=== PATIENT | male | born 1955 | race African-American/Black ===

== ENCOUNTER 2019-08-08 12:35 | Emergency (ER) | payer OTHER ==
--- NOTE | 2019-08-08 14:04 | RAD ---
EXAM: 3 views of the right foot HISTORY: Nonhealing wound of the toes of the right foot COMPARISON: None FINDINGS: 3 views of the right foot shows no evidence of acute fracture or dislocation. Osteopenia is seen in the phalanges of the toes without obvious osseous erosions are identified. No soft tissue swelling is seen. No degenerative changes are present. IMPRESSION: No evidence of acute osseous abnormality.
--- NOTE | 2019-08-08 14:34 | RAD ---
Addendum: There is a wound along the medial aspect of the great toe. There is sclerotic change in the distal ph alanx which may represent chronic reactive bone formation without obvious osseous erosion. Reported By: Gerald Campbell by Gerald Campbell. EXAM: 3 views of the right foot HISTORY: Nonhealing wound of the toes of the right foot COMPARISON: None FINDINGS: 3 views of the right foot shows no evidence of acute fracture or dislocation. Osteopenia is seen in the phalanges of the toes without obvious osseous erosions are identified. No soft tissue swelling is seen. No degenerative changes are present. IMPRESSION: No evidence of acute osseous abnormality. Transcribed Date/Time: 08/08/2019 2:33 PM
== END 2019-08-08 14:56 | disposition home or self-care (01) ==
LOC: ERS 12:35
DX: L97.519 Non-pressure chronic ulcer of other part of right foot with unspecified severity (principal); E11.9 Type 2 diabetes mellitus without complications; I10 Essential (primary) hypertension; Z89.412 Acquired absence of left great toe

== ENCOUNTER 2021-11-10 13:18 | Emergency (ER) | payer OTHER ==
[~2021-11-10 13:18] MED LIST: Iopamidol-370 76% 500 ML 1 ML ONE
[2021-11-10 14:05] LABS: #Basophils 0.1 thou/uL (0.0-0.2); #Eosinphils 0.2 thou/uL (0.0-0.7); #Lymphocytes 1.7 thou/uL (1.20-3.40); #Monocytes 0.8 thou/uL (0.11-0.59); #Neutrophils 6.3 thou/uL (1.40-6.50); %Basophils 0.6 % (0.0-1.0); %Eosinophils 1.8 % (0.0-10.0); %Lymphocytes 18.7 % (21.0-51.0); %Monocytes 8.8 % (0.0-10.0); %Neutrophils 70.1 % (42.0-75.0); Hemoglobin 13.7 g/dL (14.0-18.0); Mean Corpuscular HGB CONC 31.7 g/dL (32.0-36.0); Mean Corpuscular Hemoglobin 29.7 pg (27.0-31.0); Mean Corpuscular Volume 93.7 fL (78.0-98.0); Mean Platelet Volume 7.5 fL (7.4-10.4); Platelet Count 278 thou/uL (130-400); RBC Distribution Width 12.2 % (11.5-14.5); Red Blood Cell (RBC) Count 4.63 mill/uL (4.70-6.10)
[2021-11-10 14:14] LABS: PTT 34.7 sec (22.9-36.1); Prothrombin Time 13.1 sec (12.0-14.7)
[2021-11-10 14:19] LABS: Acetaminophen Less than 10.0 mcg/mL (10.0-30.0); Alcohol Less than 10 mg/dL (Less than 10); Salicylate Less than 8.0 mg/dL (15.0-30.0)
[2021-11-10 14:26] LABS: ALT (SGPT) 7 U/L (8-55); AST (SGOT) 15 U/L (5-34); Albumin 3.3 g/dL (3.4-4.8); Alkaline Phosphatase 75 U/L (40-110); Anion Gap 12 mmol/L (10-20); BUN (Urea Nitrogen) 21 mg/dL (8.4-25.7); Bilirubin, Total 0.4 mg/dL (0.2-1.2); CK (CPK) 157 U/L (30-200); Calc. Creatinine Clearance 0 mL/min (70-130); Calcium 9.1 mg/dL (7.8-10.44); Carbon Dioxide 19 mmol/L (23-31); Chloride 110 mmol/L (98-107); Globulin 4.1 g/dL (2.4-3.5); Glucose 75 mg/dL (80-115); Potassium 4.1 mmol/L (3.5-5.1); Protein, Total 7.4 g/dL (5.8-8.1); Sodium 137 mmol/L (136-145)
[2021-11-10 14:57] LABS: CKMB 9.6 ng/mL (0-6.6)
[2021-11-10 16:24] LABS: SARS-CoV-2 NAA Rapid Test Not Detected (NotDetected)
[2021-11-10 17:05] LABS: Bacteria/HPF None Seen HPF (None Seen); Bilirubin Negative (Negative); Blood, Urine 1+ (Negative); Clarity Clear (Clear); Glucose, Urine (Dipstick) 70 mg/dL (Negative); Ketone, Urine Negative (Negative); Leukocyte Negative Leu/uL (Negative); Nitrite Negative (Negative); Protein, Urine (Dipstick) 200 mg/dL (Neg-Trace); RBC/HPF 0-3 HPF (0-3); Specific Gravity, Urine 1.014 (1.002-1.036); Squamous Epithelial None Seen HPF (0-3); Urobilinogen Normal mg/dL (Less than 2); WBC/HPF 0-3 HPF (0-3); pH, Urine 7.5 (5.0-9.0)
[2021-11-10 17:13] LABS: Amphetamine Not Detected (NotDetected); Barbiturates Screen Not Detected (NotDetected); Benzodiazepine Screen Not Detected (NotDetected); Cocaine Metabolite Screen Not Detected (NotDetected); Methadone Not Detected (NotDetected); Methamphetamine Not Detected (NotDetected); Opiate Screen Not Detected (NotDetected); Oxycodone Screen Not Detected (NotDetected); Phencyclidine (PCP) Not Detected (NotDetected); THC/Cannabinoid Screen Not Detected (NotDetected); Tricyclic Screen Not Detected (NotDetected)
[2021-11-10] MEDS ORDERED: Aspirin Chewable 81 MG TAB ONE (17:34)
== END 2021-11-10 21:15 | disposition short-term general hospital (02) ==
LOC: ERS 13:18
DX: I63.533 Cerebral infarction due to unspecified occlusion or stenosis of bilateral posterior cerebral arteries (principal); E11.9 Type 2 diabetes mellitus without complications; I10 Essential (primary) hypertension; Z20.822 Contact with and (suspected) exposure to COVID-19; Z79.4 Long term (current) use of insulin; Z79.84 Long term (current) use of oral hypoglycemic drugs; Z79.899 Other long term (current) drug therapy
CPT/HCPCS: 36415; 70450; 70496; 70498; 71045; 72170; 80053; 80306; 80307; 81003; 81015; 82140; 82550; 82553; 84484; 85025; 85610; 85730; 93005; 94760; 96360; Q9967; U0002

== ENCOUNTER 2023-12-26 01:22 | Inpatient (IN) | payer OTHER ==
[2023-12-26] MEDS ORDERED: Ondansetron ODT 4 MG TAB PO PRN (03:13)
[2023-12-26] MEDS ORDERED: Acetaminophen 650 MG Suppository PR PRN (03:13)
[2023-12-26 04:23] LABS: #Basophils 0.04 10x3/uL (0.0-0.2); #Eosinphils Less than 0.03 10x3/uL (0.0-0.7); %Basophils 0.2 % (0.0-1.0); %Lymphocytes 2.6 % (21.0-51.0); %Monocytes 5.4 % (0.0-10.0); %Neutrophils 90.2 % (42.0-75.0); Hematocrit 35.9 % (42.0-52.0); Hemoglobin 12.1 g/dL (14.0-18.0); Mean Corpuscular HGB CONC 33.7 g/dL (32.0-36.0); Mean Corpuscular Hemoglobin 30.6 pg (27.0-31.0); Mean Corpuscular Volume 90.7 fL (78.0-98.0); Mean Platelet Volume 10.7 fL (7.4-10.4); Platelet Count 162 10x3/uL (130-400); RBC Distribution Width 11.9 % (11.5-14.5); Red Blood Cell (RBC) Count 3.96 mill/uL (4.70-6.10)
[2023-12-26] MEDS: Acetaminophen 325 MG TAB PO PRN (04:39)
[2023-12-26 04:52] LABS: ALT (SGPT) 6 U/L (8-55); AST (SGOT) 17 U/L (5-34); Albumin 2.6 g/dL (3.4-4.8); Alkaline Phosphatase 52 U/L (40-110); Anion Gap 13 mmol/L (10-20); BUN (Urea Nitrogen) 35 mg/dL (8.4-25.7); Bilirubin, Total 0.7 mg/dL (0.2-1.2); Calc. Creatinine Clearance 0 mL/min (70-130); Calcium 8.6 mg/dL (7.8-10.44); Carbon Dioxide 15 mmol/L (23-31); Chloride 113 mmol/L (98-107); Estimated GFR 29; Globulin 3.5 g/dL (2.4-3.5); Glucose 165 mg/dL (80-115); Potassium 4.3 mmol/L (3.5-5.1); Protein, Total 6.1 g/dL (5.8-8.1); Sodium 137 mmol/L (136-145)
[2023-12-26] MEDS: Ondansetron PF 4 MG/2 ML Vial IVP PRN (06:32)
[2023-12-26] MEDS: Cefepime 1 GM in Sodium Chloride 0.9% 100 ML IVPB SCH (06:32)
[2023-12-26] MEDS ORDERED: cefTRIAXone\\ROCEPHIN 2 GM in Sodium Chloride 0.9% 100 ML IVPB SCH (08:00)
[2023-12-26] MEDS: Doxycycline 100 MG in Sodium Chloride 0.9% 100 ML IVPB SCH (08:45)
[2023-12-26] MEDS: Lactulose 20 GM (30 mL) UDCUP PO SCH (08:47)
[2023-12-26] MEDS: Aspirin 81 mg Enteric Coated Tablet PO SCH (08:49)
[2023-12-26] MEDS: Amlodipine 10 MG TAB PO SCH (08:49)
[2023-12-26] MEDS: hydrALAZINE 25 MG TAB PO SCH (08:49)
[2023-12-26] MEDS: Famotidine 20 MG TAB PO SCH (08:49)
[2023-12-26] MEDS: Clopidogrel Bisulfate 75 MG TAB PO SCH (08:49)
[2023-12-26] MEDS: DorzolamidE/Timolol 2%/0.5% Ophth Soln 10 ml Bottle L EYE SCH (08:50)
[2023-12-26] MEDS: metFORMIN 500 MG TAB PO SCH (10:17)
[2023-12-26] MEDS: Famotidine/PF 20 mg/2ml Vial SLOW IVP SCH (14:25)
[2023-12-26] MEDS ORDERED: Dextrose 5% in Water 1,000 ML IV PRN (17:02)
[2023-12-26] MEDS ORDERED: Dextrose 50% Abboject 50 ML SYRINGE SLOW IVP PRN (17:02)
[2023-12-26] MEDS ORDERED: Glucagon 1 MG/ML KIT IM PRN (17:02)
[2023-12-26 17:47] VITALS: BMI 25.7
[2023-12-26] MEDS: Terazosin HCl 1 MG CAP PO SCH (21:17)
[2023-12-27 04:14] LABS: #Basophils 0.04 10x3/uL (0.0-0.2); %Basophils 0.2 % (0.0-1.0); %Eosinophils 0.2 % (0.0-10.0); %Lymphocytes 6.2 % (21.0-51.0); %Monocytes 5.9 % (0.0-10.0); %Neutrophils 86.8 % (42.0-75.0); Hemoglobin 11.6 g/dL (14.0-18.0); Mean Corpuscular HGB CONC 34.1 g/dL (32.0-36.0); Mean Corpuscular Hemoglobin 30.4 pg (27.0-31.0); Mean Platelet Volume 11.3 fL (7.4-10.4); Platelet Count 179 10x3/uL (130-400); RBC Distribution Width 12.1 % (11.5-14.5); Red Blood Cell (RBC) Count 3.82 mill/uL (4.70-6.10)
[2023-12-27 04:17] LABS: ALT (SGPT) 8 U/L (8-55); AST (SGOT) 16 U/L (5-34); Albumin 2.4 g/dL (3.4-4.8); Alkaline Phosphatase 55 U/L (40-110); Anion Gap 12 mmol/L (10-20); BUN (Urea Nitrogen) 43 mg/dL (8.4-25.7); Bilirubin, Total 0.6 mg/dL (0.2-1.2); Calc. Creatinine Clearance 33 mL/min (70-130); Carbon Dioxide 17 mmol/L (23-31); Chloride 111 mmol/L (98-107); Estimated GFR 25; Globulin 3.6 g/dL (2.4-3.5); Glucose 142 mg/dL (80-115); Sodium 136 mmol/L (136-145)
[2023-12-27] MEDS: Lactated Ringer's 1,000 ML IV SCH (06:22)
[2023-12-27] MEDS: Cefepime 1 GM in Sodium Chloride 0.9% 100 ML IVPB SCH (09:29)
[2023-12-27 14:31] VITALS: BMI 25.7
[2023-12-27] MEDS: Brimonidine Tartrate 0.2% Ophth Soln 5 ml Bottle L EYE SCH (15:26)
[2023-12-27] MEDS: Latanoprost 0.005% Ophth Soln 2.5 ml Bottle L EYE SCH (20:25)
[2023-12-27] MEDS: Timolol 0.5% Ophth Soln 5 ml Bottle L EYE SCH (20:26)
[2023-12-27] MEDS ORDERED: Non-Formulary Item 1 EACH (Timolol Maleate/Pf [Timolol Maleate 0.5% Eye Drop] 1 EACH Drop L EYE SCH (21:00)
[2023-12-27] MEDS ORDERED: Terazosin HCl 1 MG CAP PO SCH (21:00)
[2023-12-28 04:01] LABS: #Basophils 0.03 10x3/uL (0.0-0.2); %Basophils 0.2 % (0.0-1.0); %Eosinophils 1.2 % (0.0-10.0); %Monocytes 5.1 % (0.0-10.0); %Neutrophils 84.9 % (42.0-75.0); Hematocrit 34.6 % (42.0-52.0); Hemoglobin 11.5 g/dL (14.0-18.0); Mean Corpuscular HGB CONC 33.2 g/dL (32.0-36.0); Mean Corpuscular Hemoglobin 30.8 pg (27.0-31.0); Mean Corpuscular Volume 92.8 fL (78.0-98.0); Mean Platelet Volume 10.7 fL (7.4-10.4); Platelet Count 201 10x3/uL (130-400); RBC Distribution Width 12.1 % (11.5-14.5); Red Blood Cell (RBC) Count 3.73 mill/uL (4.70-6.10)
[2023-12-28 05:00] LABS: ALT (SGPT) 9 U/L (8-55); AST (SGOT) 17 U/L (5-34); Albumin 2.3 g/dL (3.4-4.8); Alkaline Phosphatase 157 U/L (40-110); Anion Gap 13 mmol/L (10-20); BUN (Urea Nitrogen) 44 mg/dL (8.4-25.7); Bilirubin, Total 0.5 mg/dL (0.2-1.2); Calc. Creatinine Clearance 34 mL/min (70-130); Calcium 9.4 mg/dL (7.8-10.44); Carbon Dioxide 18 mmol/L (23-31); Chloride 111 mmol/L (98-107); Estimated GFR 26; Globulin 3.8 g/dL (2.4-3.5); Glucose 136 mg/dL (80-115); Potassium 3.7 mmol/L (3.5-5.1); Protein, Total 6.1 g/dL (5.8-8.1); Sodium 138 mmol/L (136-145)
[2023-12-28] MEDS: Aspirin 81 mg Enteric Coated Tablet PO SCH (10:22)
[2023-12-28] MEDS: Insulin Lispro 100 UNIT/ML 10 ML VIAL SC PRN (14:19)
[2023-12-28] MEDS: Albumin 25% 25 GM (100 mL) BOT IVPB SCH ×2 (15:30→18:31)
[2023-12-28] MEDS: cefTRIAXone\\ROCEPHIN 2 GM in Sodium Chloride 0.9% 100 ML IVPB SCH (21:04)
[2023-12-29 04:00] LABS: #Basophils 0.03 10x3/uL (0.0-0.2); %Basophils 0.4 % (0.0-1.0); %Lymphocytes 13.9 % (21.0-51.0); %Monocytes 6.3 % (0.0-10.0); %Neutrophils 74.5 % (42.0-75.0); Hematocrit 32.1 % (42.0-52.0); Hemoglobin 10.6 g/dL (14.0-18.0); Mean Corpuscular Hemoglobin 30.7 pg (27.0-31.0); Mean Platelet Volume 10.2 fL (7.4-10.4); Platelet Count 196 10x3/uL (130-400); Red Blood Cell (RBC) Count 3.45 mill/uL (4.70-6.10)
[2023-12-29 04:35] LABS: ALT (SGPT) 5 U/L (8-55); AST (SGOT) 8 U/L (5-34); Albumin 2.9 g/dL (3.4-4.8); Alkaline Phosphatase 48 U/L (40-110); Anion Gap 12 mmol/L (10-20); BUN (Urea Nitrogen) 38 mg/dL (8.4-25.7); Bilirubin, Total 0.6 mg/dL (0.2-1.2); Calc. Creatinine Clearance 42 mL/min (70-130); Calcium 9.2 mg/dL (7.8-10.44); Carbon Dioxide 18 mmol/L (23-31); Chloride 115 mmol/L (98-107); Estimated GFR 33; Globulin 2.9 g/dL (2.4-3.5); Glucose 128 mg/dL (80-115); Potassium 3.5 mmol/L (3.5-5.1); Protein, Total 5.8 g/dL (5.8-8.1); Sodium 141 mmol/L (136-145)
[2023-12-29 17:24] VITALS: BP 172/87; TEMP 98.1
== END 2023-12-29 17:26 | DRG 871 ==
LOC: 2NO 02:19 → EEVIPCON 02:19
PROVIDERS: ADMIT Student in an Organized Health Care Education/Training Program; ATTEND Family Medicine
PROC: 3E03329 Introduction of Other Anti-infective into Peripheral Vein, Percutaneous Approach (ICD-10-PCS; principal; 2023-12-26)
PROC: 30233J1 Transfusion of Nonautologous Serum Albumin into Peripheral Vein, Percutaneous Approach (ICD-10-PCS; 2023-12-28)
DX: A40.1 Sepsis due to streptococcus, group B (principal); G93.41 Metabolic encephalopathy; J18.9 Pneumonia, unspecified organism; N12 Tubulo-interstitial nephritis, not specified as acute or chronic; N20.1 Calculus of ureter; N17.9 Acute kidney failure, unspecified; N18.9 Chronic kidney disease, unspecified; E11.22 Type 2 diabetes mellitus with diabetic chronic kidney disease; I12.9 Hypertensive chronic kidney disease with stage 1 through stage 4 chronic kidney disease, or unspecified chronic kidney disease; E11.51 Type 2 diabetes mellitus with diabetic peripheral angiopathy without gangrene; K74.60 Unspecified cirrhosis of liver; Z79.899 Other long term (current) drug therapy; Z79.82 Long term (current) use of aspirin
CPT/HCPCS: 36415; 36416; 80053; 82140; 83036; 83605; 85025; J0692; J0696; J2405; J3490; J7120; P9047

== ENCOUNTER 2024-04-02 22:07 | Inpatient (IN) | payer OTHER ==
[2024-04-02 23:53] VITALS: BMI 25.1
[2024-04-03] MEDS ORDERED: Acetaminophen 325 MG TAB PO PRN (01:12)
[2024-04-03] MEDS ORDERED: hydrALAZINE 20 MG/ML VIAL SLOW IVP PRN (01:12)
[2024-04-03] MEDS ORDERED: Ondansetron PF 4 MG/2 ML Vial IVP PRN (01:12)
[2024-04-03] MEDS ORDERED: Labetalol HCl 100 MG/20 ML VIAL SLOW IVP PRN (01:12)
[2024-04-03 06:46] LABS: #Basophils 0.03 10x3/uL (0.0-0.2); %Basophils 0.4 % (0.0-1.0); %Eosinophils 1.5 % (0.0-10.0); %Monocytes 6.8 % (0.0-10.0); %Neutrophils 66.3 % (42.0-75.0); Hematocrit 33.5 % (42.0-52.0); Hemoglobin 10.7 g/dL (14.0-18.0); Mean Corpuscular HGB CONC 31.9 g/dL (32.0-36.0); Mean Corpuscular Hemoglobin 29.8 pg (27.0-31.0); Mean Corpuscular Volume 93.3 fL (78.0-98.0); Mean Platelet Volume 10.2 fL (7.4-10.4); Platelet Count 230 10x3/uL (130-400); RBC Distribution Width 13.2 % (11.5-14.5); Red Blood Cell (RBC) Count 3.59 mill/uL (4.70-6.10)
[2024-04-03 07:11] LABS: Hemoglobin A1c 6.6 % (4.0-6.0)
[2024-04-03 07:19] LABS: Anion Gap 10 mmol/L (10-20); BUN (Urea Nitrogen) 26 mg/dL (8.4-25.7); Calc. Creatinine Clearance 38 mL/min (70-130); Calcium 8.4 mg/dL (7.8-10.44); Carbon Dioxide 22 mmol/L (23-31); Cardiac Risk 3.7 (Less than 4.5); Chloride 109 mmol/L (98-107); Cholesterol 173 mg/dl (< 200 Desired); Estimated GFR 30; Glucose 109 mg/dL (80-115); HDL Cholesterol 47 mg/dL (>60 Neg Risk); LDL Cholesterol, Calculated 114 mg/dL; Potassium 4.2 mmol/L (3.5-5.1); Sodium 137 mmol/L (136-145); Triglycerides 62 mg/dL (Less than 150)
[2024-04-03] MEDS: Lactulose 20 GM (30 mL) UDCUP PO SCH (09:44)
[2024-04-03] MEDS: Aspirin 81 mg Enteric Coated Tablet PO SCH (09:44)
[2024-04-03] MEDS: Clopidogrel Bisulfate 75 MG TAB PO SCH (09:44)
[2024-04-03] MEDS: Famotidine 20 MG TAB PO SCH (09:44)
[2024-04-03] MEDS: Amlodipine 10 MG TAB PO SCH (09:44)
[2024-04-03] MEDS: Brimonidine Tartrate 0.2% Ophth Soln 5 ml Bottle L EYE SCH (09:44)
[2024-04-03] MEDS: hydrALAZINE 25 MG TAB PO SCH (09:44)
[2024-04-03] MEDS: Timolol 0.5% Ophth Soln 5 ml Bottle L EYE SCH (09:45)
[2024-04-03] MEDS: Dorzolamide HCl 2% Ophth (10 mL) Bottle L EYE SCH (09:45)
[2024-04-03] MEDS: FLU (Fluad Triv) TS24-25 (65UP)/MF59C/PF 45 MCG/0.5 ML Syringe IM ONE (15:37)
[2024-04-03] MEDS: Terazosin HCl 1 MG CAP PO SCH (21:00)
[2024-04-03] MEDS: Latanoprost 0.005% Ophth Soln 2.5 ml Bottle L EYE SCH (21:02)
[2024-04-03] MEDS: Atorvastatin Calcium 40 MG TAB PO SCH (21:07)
[2024-04-04 04:23] LABS: #Basophils 0.03 10x3/uL (0.0-0.2); %Basophils 0.5 % (0.0-1.0); %Eosinophils 3.3 % (0.0-10.0); %Lymphocytes 30.6 % (21.0-51.0); %Monocytes 8.2 % (0.0-10.0); %Neutrophils 57.2 % (42.0-75.0); Hemoglobin 11.4 g/dL (14.0-18.0); Mean Corpuscular HGB CONC 32.6 g/dL (32.0-36.0); Mean Corpuscular Hemoglobin 29.2 pg (27.0-31.0); Mean Corpuscular Volume 89.7 fL (78.0-98.0); Mean Platelet Volume 10.2 fL (7.4-10.4); Platelet Count 232 10x3/uL (130-400); RBC Distribution Width 13.2 % (11.5-14.5)
[2024-04-04 04:45] LABS: Anion Gap 11 mmol/L (10-20); BUN (Urea Nitrogen) 28 mg/dL (8.4-25.7); Calc. Creatinine Clearance 33 mL/min (70-130); Calcium 8.5 mg/dL (7.8-10.44); Carbon Dioxide 21 mmol/L (23-31); Chloride 112 mmol/L (98-107); Estimated GFR 25; Glucose 119 mg/dL (80-115); Potassium 4.6 mmol/L (3.5-5.1); Sodium 139 mmol/L (136-145)
[2024-04-04] MEDS: Isoniazid 100 MG TAB PO SCH (05:50)
[2024-04-04] MEDS: RIFAPENTINE 150 MG PO SCH (09:21)
[2024-04-04] MEDS: pyridOXINE 50 MG (B6) TAB PO SCH (09:23)
[2024-04-04 12:10] VITALS: BP 116/64; TEMP 97.8
== END 2024-04-04 13:33 | DRG 69 ==
LOC: EEVIPCON 23:33 → 2SE 23:33 → OBSVTOIN 04-03 15:51 → 2SE 04-03 20:28
PROVIDERS: ADMIT Internal Medicine; ATTEND Internal Medicine
DX: G45.9 Transient cerebral ischemic attack, unspecified (principal); N18.4 Chronic kidney disease, stage 4 (severe); E11.22 Type 2 diabetes mellitus with diabetic chronic kidney disease; K74.60 Unspecified cirrhosis of liver; I12.9 Hypertensive chronic kidney disease with stage 1 through stage 4 chronic kidney disease, or unspecified chronic kidney disease; N40.0 Benign prostatic hyperplasia without lower urinary tract symptoms; F03.90 Unspecified dementia, unspecified severity, without behavioral disturbance, psychotic disturbance, mood disturbance, and anxiety; Z87.891 Personal history of nicotine dependence; H40.9 Unspecified glaucoma; I25.10 Atherosclerotic heart disease of native coronary artery without angina pectoris; Z79.899 Other long term (current) drug therapy
CPT/HCPCS: 36415; 36416; 70551; 80048; 80061; 83036; 85025; 93306; 93880; G0378

== ENCOUNTER 2024-07-22 13:32 | Emergency (ER) | payer OTHER ==
[2024-07-22 15:00] LABS: #Basophils 0.03 10x3/uL (0.0-0.2); %Basophils 0.4 % (0.0-1.0); %Eosinophils 4.6 % (0.0-10.0); %Lymphocytes 23.9 % (21.0-51.0); %Monocytes 10.8 % (0.0-10.0); %Neutrophils 59.9 % (42.0-75.0); Hematocrit 29.4 % (42.0-52.0); Hemoglobin 9.5 g/dL (14.0-18.0); Mean Corpuscular HGB CONC 32.3 g/dL (32.0-36.0); Mean Corpuscular Volume 92.7 fL (78.0-98.0); Platelet Count 235 10x3/uL (130-400); RBC Distribution Width 12.9 % (11.5-14.5); Red Blood Cell (RBC) Count 3.17 mill/uL (4.70-6.10)
[2024-07-22 15:41] LABS: ALT (SGPT) Less than 7 U/L (Less than 45); AST (SGOT) 28 U/L (11-34); Alkaline Phosphatase 73 U/L (40-110); Anion Gap 13 mmol/L (10-20); BUN (Urea Nitrogen) 33 mg/dL (8.4-25.7); Bilirubin, Total 0.3 mg/dL (0.3-1.2); Calc. Creatinine Clearance 0 mL/min (70-130); Calcium 8.7 mg/dL (7.8-10.44); Carbon Dioxide 16 mmol/L (23-31); Chloride 117 mmol/L (98-107); Estimated GFR 30; Globulin 4.1 g/dL (2.4-3.5); Glucose 87 mg/dL (80-115); Magnesium 2.3 mg/dL (1.6-2.6); Protein, Total 7.1 g/dL (5.8-8.1); Sodium 141 mmol/L (136-145)
[2024-07-22 16:14] LABS: Phosphorus 3.8 mg/dL (2.5-4.5)
[2024-07-22] MEDS ORDERED: hydrALAZINE 20 MG/ML VIAL ONE (20:04)
[2024-07-22] MEDS ORDERED: Ondansetron PF 4 MG/2 ML Vial ONE (20:50)
== END 2024-07-23 01:03 ==
LOC: ERS 13:32 → EEVIPCON 13:32 → ERS 07-23 01:03
DX: I12.9 Hypertensive chronic kidney disease with stage 1 through stage 4 chronic kidney disease, or unspecified chronic kidney disease (principal); N18.9 Chronic kidney disease, unspecified
CPT/HCPCS: 76770; 80053; 83735; 84100; 85025; 93005; 96374; 96375; J0360; J2405